=== PATIENT | male | born 1935 | race Caucasian/White ===

== ENCOUNTER 2017-08-15 16:55 | Emergency (ER) | payer MEDICARE, BC ==
[2017-08-15 17:05] VITALS: TEMP 97.8
[2017-08-15 17:25] LABS: HEMATOCRIT 36 % (39-53); MEAN CORPUSCULAR HGB CONC 31.7 gm/dl (32.0-36.0)
[2017-08-15 17:30] LABS: MEAN CORPUSCULAR VOLUME 81 fL (80-100)
[2017-08-15] MEDS ORDERED: LEVOFLOXACIN 500 MG TAB PO ONE (17:33)
[2017-08-15] MEDS ORDERED: ALBUTEROL NEB SOL 2.5MG/3ML 1 VIAL SOL NEB ONE (17:34)
[2017-08-15 17:39] LABS: BASOPHILS % (MANUAL) 0 % (0-3); EOSINOPHILS % (MANUAL) 0 % (0-9); LYMPHOCYTES % (MANUAL) 76 % (10-50); NORMAL RBCS PRESENT
[2017-08-15] MEDS ORDERED: LEVOFLOXACIN 500 MG TAB ONE (17:41)
[2017-08-15] MEDS ORDERED: ALBUTEROL NEB SOL 2.5MG/3ML 1 VIAL SOL ONE (17:41)
[2017-08-15] MEDS ORDERED: FUROSEMIDE 20 MG TAB ONE (17:44)
[2017-08-15] MEDS ORDERED: FUROSEMIDE 20 MG TAB PO SCH (17:45)
[2017-08-15 18:00] VITALS: RESP 24
[2017-08-15 18:38] VITALS: BP 138/67; PULSE 82; O2SAT 93
== END 2017-08-15 18:20 | disposition home or self-care (01) | DRG 195 ==
LOC: ED 16:55
DX: J18.9 Pneumonia, unspecified organism (principal); J20.9 Acute bronchitis, unspecified
CPT/HCPCS: 71020; 85007; 85027; 99284; J7603

== ENCOUNTER 2017-08-17 13:17 | Inpatient (IN) | payer MEDICARE, BC ==
[2017-08-17] MEDS ORDERED: VANCOMYCIN HCL 500 MG PDS 1,000 MG in SODIUM CHLORIDE 0.9% 250 ML 250 ML IV ONE (14:54)
[2017-08-17] MEDS: SODIUM CHLORIDE 0.9% FLUSH 10 ML SOL IV SCH ×2 (15:01→21:04)
[2017-08-17] MEDS: SODIUM CHLORIDE 0.9% 1000ML 1,000 ML IV SCH (15:18)
[2017-08-17] MEDS ORDERED: SODIUM CHLORIDE 0.9% 250 ML 250 ML IV ONE (15:24)
[2017-08-17] MEDS ORDERED: VANCOMYCIN HYDROCHLORIDE 500 MG PDS IV ONE (15:24)
[2017-08-17 16:11] LABS: ALBUMIN 3.2 gm/dl (3.4-5.0); CALCIUM 9.1 mg/dl (8.5-10.1); POTASSIUM 3.3 mMol/L (3.5-5.1)
[2017-08-17 16:48] LABS: PLEURAL FLUID PH 8.5
[2017-08-17 16:49] LABS: PLEURAL FLUID GLUCOSE 114 mg/dl
[2017-08-17] MEDS ORDERED: POLYETHYLENE GLYCOL 17 GM/1 TBS PDS PO PRN (20:38)
[2017-08-17] MEDS ORDERED: RANITIDINE HCL 150 MG TAB PO SCH (21:00)
[2017-08-17] MEDS ORDERED: OMEPRAZOLE 20 MG CAPSULE PO SCH (21:00)
[2017-08-17] MEDS: POTASSIUM CHLORIDE 10 MEQ TER PO SCH (21:03)
[2017-08-18] MEDS: SODIUM CHLORIDE 0.9% 1000ML 1,000 ML IV SCH (01:07)
[2017-08-18] MEDS: SODIUM CHLORIDE 0.9% FLUSH 10 ML SOL IV SCH ×4 (04:46→21:03)
[2017-08-18] MEDS: FAMOTIDINE 20 MG TAB PO SCH ×3 (04:50→16:33)
[2017-08-18 07:31] LABS: ALBUMIN 2.3 gm/dl (3.4-5.0); CALCIUM 8.1 mg/dl (8.5-10.1); HEMATOCRIT 32 % (39-53); MEAN CORPUSCULAR HGB CONC 34.3 gm/dl (32.0-36.0); POTASSIUM 3.8 mMol/L (3.5-5.1)
[2017-08-18 08:08] LABS: MEAN CORPUSCULAR VOLUME 81 fL (80-100)
[2017-08-18 08:09] LABS: ANISOCYTOSIS SLIGHT AMT; BASOPHILS % (MANUAL) 0 % (0-3); EOSINOPHILS % (MANUAL) 0 % (0-9); LYMPHOCYTES % (MANUAL) 51 % (10-50)
[2017-08-18] MEDS: PREDNISONE 20 MG TAB PO SCH (08:16)
[2017-08-18] MEDS: LEVOFLOXACIN 500 MG TAB PO SCH (08:16)
[2017-08-18] MEDS ORDERED: CALCIUM CARBONATE 500 MG TAB PO PRN (08:16)
[2017-08-18] MEDS: POTASSIUM CHLORIDE 10 MEQ TER PO SCH (08:16)
[2017-08-18] MEDS: PANTOPRAZOLE SODIUM 40 MG ECT PO SCH (08:16)
[2017-08-18] MEDS: DOXYCYCLINE 100 MG TAB PO SCH ×2 (10:26→20:27)
[2017-08-18] MEDS ORDERED: ALUMINUM/MAGNESIUM 30 ML SUS PO PRN (17:38)
[2017-08-18] MEDS ORDERED: ACETAMINOPHEN 325 MG ONE (22:13)
[2017-08-18] MEDS ORDERED: ACETAMINOPHEN 325 MG PO PRN (22:15)
[2017-08-19] MEDS: SODIUM CHLORIDE 0.9% FLUSH 10 ML SOL IV SCH ×2 (06:23→11:32)
[2017-08-19] MEDS: FAMOTIDINE 20 MG TAB PO SCH (06:23)
[2017-08-19] MEDS: LEVOFLOXACIN 500 MG TAB PO SCH (08:27)
[2017-08-19] MEDS: DOXYCYCLINE 100 MG TAB PO SCH (08:28)
[2017-08-19] MEDS: PREDNISONE 20 MG TAB PO SCH (08:28)
[2017-08-19] MEDS: PANTOPRAZOLE SODIUM 40 MG ECT PO SCH (08:29)
[2017-08-19 08:46] VITALS: BP 152/86; PULSE 88; RESP 16; TEMP 98; O2SAT 96
[2017-08-19] MEDS ORDERED: POTASSIUM CHLORIDE 10 MEQ CAPSULE PO SCH (09:00)
[2017-08-19 09:04] LABS: HEMATOCRIT 35 % (39-53); MEAN CORPUSCULAR HGB CONC 32.4 gm/dl (32.0-36.0)
[2017-08-19 09:06] LABS: MEAN CORPUSCULAR VOLUME 80 fL (80-100)
[2017-08-19 09:15] LABS: BASOPHILS % (MANUAL) 0 % (0-3); EOSINOPHILS % (MANUAL) 0 % (0-9); LYMPHOCYTES % (MANUAL) 56 % (10-50)
[2017-08-19 09:16] LABS: ANISOCYTOSIS SLIGHT AMT; OVALOCYTES PRESENT; PLATELET MORPHOLOGY COMMENT NORMAL
[2017-08-19 09:20] LABS: ALBUMIN 2.7 gm/dl (3.4-5.0); POTASSIUM 3.5 mMol/L (3.5-5.1)
== END 2017-08-19 13:30 | disposition home or self-care (01) | DRG 194 ==
LOC: ACUTE CARE 13:19
PROVIDERS: ADMIT Family Medicine; ATTEND Family Medicine
PROC: 0W9B3ZZ Drainage of Left Pleural Cavity, Percutaneous Approach (ICD-10-PCS; principal; 2017-08-17)
DX: J18.9 Pneumonia, unspecified organism (principal); J91.8 Pleural effusion in other conditions classified elsewhere; I45.10 Unspecified right bundle-branch block; C91.10 Chronic lymphocytic leukemia of B-cell type not having achieved remission; R00.0 Tachycardia, unspecified; K21.9 Gastro-esophageal reflux disease without esophagitis
CPT/HCPCS: 36415; 71010; 71020; 80053; 81003; 82945; 84157; 84484; 85007; 85027; 87070; 87205; 89051; 93012; 94762; 99070; J3370

== ENCOUNTER 2017-12-19 08:57 | Day surgery (SDC) | payer MEDICARE, BC ==
[~2017-12-19 08:57] MED LIST: LIDOCAINE HCL 1% MPF SOL ONE; PROPOFOL 500 MG/50 ML EMU IV ONE
[2017-12-19 11:03] VITALS: TEMP 98.3
[2017-12-19 11:46] VITALS: BP 155/71; PULSE 81; RESP 20; O2SAT 95
== END 2017-12-19 11:57 | disposition home or self-care (01) | DRG 842 ==
LOC: SURG 08:57
PROVIDERS: ATTEND Internal Medicine Gastroenterology
DX: C91.10 Chronic lymphocytic leukemia of B-cell type not having achieved remission (principal); K22.2 Esophageal obstruction; K44.9 Diaphragmatic hernia without obstruction or gangrene; K31.7 Polyp of stomach and duodenum; K31.9 Disease of stomach and duodenum, unspecified
CPT/HCPCS: J2001; J2704

== ENCOUNTER 2018-11-21 09:39 | Day surgery (SDC) | payer BC, MEDICARE, OTHER ==
[~2018-11-21 09:39] MED LIST changes: +LIDOCAINE HCL 1% MPF 30 SOL ONE; -LIDOCAINE HCL 1% MPF SOL ONE
[2018-11-21 11:48] VITALS: TEMP 97.4
[2018-11-21 12:59] VITALS: RESP 18
[2018-11-21 13:00] VITALS: BP 167/94; PULSE 74; O2SAT 94
== END 2018-11-21 13:00 | disposition home or self-care (01) | DRG 951 ==
LOC: SURG 09:39
PROVIDERS: ATTEND Surgery
DX: Z12.11 Encounter for screening for malignant neoplasm of colon (principal); D50.9 Iron deficiency anemia, unspecified; Z80.0 Family history of malignant neoplasm of digestive organs; D12.2 Benign neoplasm of ascending colon; D12.0 Benign neoplasm of cecum
CPT/HCPCS: J2001; J2704